=== PATIENT | female | born 2005 | race Caucasian/White ===

== ENCOUNTER → 2023-06-14 13:30 | Outpatient (BNVA) | payer MEDICAID, SELFPAY | PROVIDERS: Family Provider Nurse Practitioner Family; PCP Family Medicine; Visit Provider Nurse Practitioner Family | DX: N39.0 Urinary tract infection, site not specified (principal) | CPT/HCPCS: 81000; 81003; 87086 ==

== ENCOUNTER 2023-09-07 13:41 | Outpatient (CLI) | payer MEDICAID, SELFPAY ==
[2023-09-07 13:45] VITALS: BMI 24.5
[2023-09-07 14:00] VITALS: BP 114/74; PULSE 88
[2023-09-07 14:20] VITALS: BP 109/65; PULSE 90
[2023-09-07 14:30] VITALS: BP 109/65; PULSE 90
== END 2023-09-07 14:30 | disposition home or self-care (01) ==
LOC: OPOB 13:50 → OBGYN 13:51
PROVIDERS: Family Provider Nurse Practitioner Family; PCP Family Medicine; Visit Provider Family Medicine
DX: O26.899 Other specified pregnancy related conditions, unspecified trimester (principal); Z3A.00 Weeks of gestation of pregnancy not specified
CPT/HCPCS: 59025

== ENCOUNTER 2023-09-07 14:32 | Emergency (ER) | payer MEDICAID, SELFPAY ==
[2023-09-07 14:54] VITALS: BP 115/78; PULSE 93; RESP 16; TEMP 36.9; O2SAT 100; BMI 23.5
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
--- NOTE | 2023-09-07 15:06 | ECG_ITS ---
[facility] Test Date: 2023-09-07 Pat Name: Jo-Ann Parikh Department: Room: Gender: Female Thread Singer: : 2005 Requested By: Amari ePnn Order Number: [id number] Yokasta MD: Miguel A Pardo M.D. Measurements Intervals [place] Rate: 85 P: 52 TN: 167 QRS: 41 QRSD: 88 T: 43 QT: 345 QTc: 411 Interpretive Statements SINUS RHYTHM POSSIBLE LEFT ATRIAL ENLARGEMENT [-0.1mV P-WAVE IN V1/V2] No previous ECG available for comparison Electronically Signed On 09-07-2023 15:19:52 CDT by Miguel A Pardo M.D. [id number]
[2023-09-07 15:57] VITALS: BP 116/56; PULSE 86; RESP 16; O2SAT 100
[2023-09-07 16:06] LABS: Anion Gap 11.8 (5-19); Blood Urea Nitrogen 9 mg/dL (6-20); Calcium 8.8 mg/dL (8.5-10.5); Carbon Dioxide 24 mmol/L (22-29); Chloride 104 mmol/L (98-107); Creatine Phosphokinase 25 U/L (26-192); Glomerular Filtration Rate 157.3 mL/min (90-130); Glucose 86 mg/dL (65-115); Osmolality Calculated 280 mOsm/kg (285-295); Potassium 3.8 mmol/L (3.5-5.1); Sodium 136 mmol/L (136-145)
[2023-09-07 16:26] VITALS: BP 106/74; PULSE 90; RESP 16
== END 2023-09-07 16:28 | disposition home or self-care (01) ==
PROVIDERS: Emergency Provider Emergency Medicine; PCP Nurse Practitioner Family
DX: T75.4XXA Electrocution, initial encounter (principal); W85.XXXA Exposure to electric transmission lines, initial encounter; O9A.212 Injury, poisoning and certain other consequences of external causes complicating pregnancy, second trimester; O99.332 Smoking (tobacco) complicating pregnancy, second trimester; F17.210 Nicotine dependence, cigarettes, uncomplicated; Z3A.24 24 weeks gestation of pregnancy
CPT/HCPCS: 36415; 80048; 82550; 93005; 99284

== ENCOUNTER 2024-09-09 22:21 | Emergency (ER) | payer MEDICAID, SELFPAY ==
[2024-09-09 22:45] VITALS: BP 142/87; PULSE 104; RESP 17; TEMP 36.8; O2SAT 100; BMI 33.4
== END 2024-09-09 23:00 | disposition left against medical advice (07) ==
PROVIDERS: Emergency Provider Family Medicine; PCP Nurse Practitioner Family
DX: Z53.21 Procedure and treatment not carried out due to patient leaving prior to being seen by health care provider (principal)